=== PATIENT | female | born 1985 | race Caucasian/White ===

== ENCOUNTER 2021-08-25 16:06 | Emergency (ER) | payer MEDICAID ==
[~2021-08-25] VITALS: Ht 157.5 cm; Wt 69.4 kg
[2021-08-25 16:21] VITALS: BP 127/90
[2021-08-25] MEDS ORDERED: CLINDAMYCIN 600 MG/4 ML VIAL IM ONE (17:50)
[2021-08-25] MEDS ORDERED: DEXAMETHASONE 10 MG/ML VIAL IM ONE (17:50)
[2021-08-25] MEDS ORDERED: KETOROLAC 30 MG/ML VIAL IM ONE (17:50)
[2021-08-25] MEDS ORDERED: ACET-8386 PO (17:54)
[2021-08-25] MEDS ORDERED: IBUP-2213 PO (17:54)
[2021-08-25] MEDS ORDERED: CLIN300C2 PO (17:54)
[2021-08-25] MEDS ORDERED: BENZ-300 PO (17:54)
--- NOTE | 2021-08-25 18:42 | NUR ---
Patient discharged with v/s stable. Written and verbal after care instructions ABOUT PERITONSILLAR CELLULITIS given and explained. Patient alert, oriented and verbalized understanding of instructions. Ambulatory with steady gait. All questions addressed prior to discharge. ID band removed. Patient advised to follow up with PMD. Rx of NORCO 5-325MG, CEPACOL SORE THROAT LOZENGE, IBUPROFEN, CLEOCIN given. Patient educated on indication of medication including possible reaction and side effects. Opportunity to ask questions provided and answered.
== END 2021-08-25 18:42 | disposition home or self-care (01) ==
LOC: MED 16:06
DX: J36 Peritonsillar abscess (principal); R03.0 Elevated blood-pressure reading, without diagnosis of hypertension; Z79.891 Long term (current) use of opiate analgesic; Z79.899 Other long term (current) drug therapy; Z79.1 Long term (current) use of non-steroidal anti-inflammatories (NSAID); Z79.2 Long term (current) use of antibiotics; Z88.0 Allergy status to penicillin
CPT/HCPCS: 96372; 99284; J1100; J1885; J3490